=== PATIENT | male | born 1990 | race Caucasian/White ===

== ENCOUNTER 2017-11-14 05:49 | Emergency (ER) | payer BC, OTHER ==
[~2017-11-14] VITALS: Ht 180.3 cm; Wt 75.0 kg
[2017-11-14 05:51] VITALS: BP 148/73; PULSE 115; RESP 20; TEMP 98; O2SAT 98
[2017-11-14] MEDS ORDERED: SODIUM CHLOR 0.9% 1000 ML INJ 1,000 ML IV ONE (06:00)
--- NOTE | 2017-11-14 06:00 | PD ---
HPI Chief Complaint: OD/ Ingestion Time Seen by Provider: 05:58 Travel History International Travel<30 days: No Contact w/Intl Traveler<30days: No Traveled to known affect area: No History of Present Illness HPI Original 911 call was for unresponsive. Upon arrival the EMS found the patient face down not moving, not very responsive, decrease ventilatory rate around able to start an IV so they gave the patient 8 mg of Narcan nasally. After which the patient became responsive and verbal. Patient states that all he recalls is that he was in [place]. Law-enforcement was at the bedside and the patient was very hesitant to discuss what happened in any kind of detail. Patient denies any alleviating or aggravating factors. Patient denies any associated factors such as rash, nausea, vomiting, diarrhea, cough, shortness of breath, sore throat, runny nose. No known drug allergy Patient denies any significant past medical or surgical history PFSH Past Surgical History Other Surgery: Yes (middle finger) Social History Alcohol Use: Yes (rarely) Tobacco Use: Yes (1ppd) Substance Use: Yes (heroine) Allergies-Medications (Allergen,Severity, Reaction): Coded Allergies: No Known Allergies (Unverified , 11/14/17) Reported Meds & Prescriptions Reported Meds & Active Scripts Active Reported Buprenorphine (Buprenorphine HCl) 8 Mg Subl 8 Mg SL DAILY Review of Systems ROS Limitations: Intoxication General / Constitutional: No: Fever Eyes: No: Visual changes HENT: No: Headaches Cardiovascular: No: Chest Pain or Discomfort Respiratory: No: Shortness of Breath Gastrointestinal: No: Abdominal Pain Genitourinary: No: Dysuria Musculoskeletal: No: Pain Skin: No Rash Neurologic: Positive: Syncope Psychiatric: No: Depression Endocrine: No: Polydipsia Hematologic/Lymphatic: No: Easy Bruising Physical Exam Exam Limitations: Intoxication Narrative GENERAL: SKIN: Warm and dry. HEAD: Atraumatic. Normocephalic. EYES: Pupils equal and round. No scleral icterus. No injection or drainage. ENT: No nasal bleeding or discharge. Mucous membranes pink and moist. NECK: Trachea midline. No JVD. CARDIOVASCULAR: Regular rhythm, tachycardic rate RESPIRATORY: No accessory muscle use. Clear to auscultation. Breath sounds equal bilaterally. GASTROINTESTINAL: Abdomen soft, non-tender, nondistended. MUSCULOSKELETAL: Extremities without clubbing, cyanosis, or edema. No obvious deformities. NEUROLOGICAL: Awake and alert. No obvious cranial nerve deficits. Motor grossly within normal limits. Five out of 5 muscle strength in the arms and legs. Normal speech. PSYCHIATRIC: Appropriate mood and affect; insight and judgment normal. Data Data Last Documented VS Vital Signs Date Time Temp Pulse Resp B/P (MAP) Pulse Ox O2 Delivery O2 Flow Rate FiO2 11/14/17 05:51 98.0 115 20 148/73 (98) 98 Orders Orders Electrocardiogram (11/14/17 05:58) Complete Blood Count With Diff (11/14/17 05:58) Comprehensive Metabolic Panel (11/14/17 05:58) Creatine Kinase (Cpk) (11/14/17 05:58) Troponin I (11/14/17 05:58) Lipase (11/14/17 05:58) Urinalysis - C+S If Indicated (11/14/17 05:58) Thyroid Stimulating Hormone (11/14/17 05:58) Chest, Single Ap (11/14/17 05:58) Ct Brain W/O Iv Contrast(Rout) (11/14/17 05:58) Iv Access Insert/Monitor (11/14/17 05:58) Ecg Monitoring (11/14/17 05:58) Oximetry (11/14/17 05:58) Drug Screen, Random Urine (11/14/17 05:58) Alcohol (Ethanol) (11/14/17 05:58) Salicylates (Aspirin) (11/14/17 05:58) Tylenol (Acetaminophen) (11/14/17 05:58) Sodium Chlor 0.9% 1000 Ml Inj (Ns 1000 M (11/14/17 06:00) Ceftriaxone Inj (Rocephin Inj) (11/14/17 06:45) Labs Laboratory Tests Test 11/14/17 06:05 White Blood Count 20.4 TH/MM3 Red Blood Count 4.87 MIL/MM3 Hemoglobin 14.4 GM/DL Hematocrit 42.4 % Mean Corpuscular Volume 87.2 FL Mean Corpuscular Hemoglobin 29.7 PG Mean Corpuscular Hemoglobin Concent 34.0 % Red Cell Distribution Width 12.8 % Platelet Count 262 TH/MM3 Mean Platelet Volume 8.2 FL Neutrophils (%) (Auto) 90.6 % Lymphocytes (%) (Auto) 4.1 % Monocytes (%) (Auto) 5.2 % Eosinophils (%) (Auto) 0.0 % Basophils (%) (Auto) 0.1 % Neutrophils # (Auto) 18.5 TH/MM3 Lymphocytes # (Auto) 0.8 TH/MM3 Monocytes # (Auto) 1.0 TH/MM3 Eosinophils # (Auto) 0.0 TH/MM3 Basophils # (Auto) 0.0 TH/MM3 CBC Comment DIFF FINAL Differential Comment MDM Medical Decision Making Medical Screen Exam Complete: Yes Emergency Medical Condition: Yes Medical Record Reviewed: Yes Differential Diagnosis Rhabdo versus intoxication versus electrolyte imbalance versus intracranial hemorrhage versus aspiration pneumonia Narrative Course Patient is signed out to be incoming physician pending radiology studies and disposition Diagnosis Primary Impression: Altered mental status due to intoxication Raffaele Bauman MD November 14, 2017 06:00
[2017-11-14] MEDS ORDERED: BUPR8SUB SL (06:03)
[2017-11-14 06:33] LABS: AUTOMATED NEUTROPHIL # 18.5 TH/MM3 (1.8-7.7); BASOPHIL % 0.1 % (0.0-2.0); HEMATOCRIT 42.4 % (39.0-51.0); HEMOGLOBIN 14.4 GM/DL (13.0-17.0); LYMPH % 4.1 % (9.0-44.0); LYMPHOCYTE # 0.8 TH/MM3 (1.0-4.8); MEAN CELL VOLUME 87.2 FL (80.0-100.0); MEAN CORPUSCULAR HEMOGLOBIN 29.7 PG (27.0-34.0); MEAN PLATELET VOLUME 8.2 FL (7.0-11.0); MONO % 5.2 % (0.0-8.0); NEUT % 90.6 % (16.0-70.0); PLATELET COUNT 262 TH/MM3 (150-450); RED BLOOD COUNT 4.87 MIL/MM3 (4.50-5.90); RED CELL DISTRIBUTION WIDTH 12.8 % (11.6-17.2); WHITE BLOOD COUNT 20.4 TH/MM3 (4.0-11.0)
[2017-11-14 06:43] LABS: ALBUMIN 4.2 GM/DL (3.4-5.0); ALT (GPT) 26 U/L (12-78); AST (GOT) 27 U/L (15-37); BICARBONATE 25.9 MEQ/L (21.0-32.0); BLOOD UREA NITROGEN 16 MG/DL (7-18); CALCIUM 8.6 MG/DL (8.5-10.1); CHLORIDE 107 MEQ/L (98-107); CREATININE 1.49 MG/DL (0.60-1.30); GLOMERULAR FILTRATION RATE 57 ML/MIN (>89); GLUCOSE,RANDOM 151 MG/DL (74-106); SODIUM (NA) 142 MEQ/L (136-145)
[2017-11-14] MEDS ORDERED: cefTRIAXone INJ 1,000 MG in SODIUM CHLORIDE 0.9% INJ 100 ML IV ONE (06:45)
[2017-11-14 06:52] LABS: ALKALINE PHOSPHATASE 69 U/L (45-117); TOTAL BILIRUBIN ADULT 0.4 MG/DL (0.2-1.0); TOTAL PROTEIN 7.9 GM/DL (6.4-8.2); TROPONIN I LESS THAN 0.02 NG/ML (0.02-0.05)
[2017-11-14 06:55] LABS: ACETAMINOPHEN LESS THAN 2.0 MCG/ML (10.0-30.0)
[2017-11-14 07:09] VITALS: BP 126/69; PULSE 97; RESP 16; O2SAT 99
--- NOTE | 2017-11-14 07:12 | PD ---
Physical Exam Narrative Received sign out to follow up with CT brain and CXR. Pt was evaluated by previous provider, please see his note for further details. 27yo M was found unresponsive after unknown ingestion. Pt was awake after narcan from [facility]. Pt has not received any narcan in the ED. Pt is afebrile and initially mildly tachycardic at 115bpm. HR improved after NS IVF. Labs reviewed, leukocytosis at 20.4. May be reactive or infectious. Pt empirically cover with ceftriaxone by previous provider. CPK mildly elevated at 511. Creatinine mildly elevated at 1.49. Will hydrate. Troponin negative. TSH normal. LFTs normal. Alcohol negative. Acetaminophen and salicylate negative. Pt evaluated at bedside and is awake and alert. Admits to sniffing some medicine. States he is thirsty and requesting water. Denies any other complaints. No signs of trauma on him. CXR negative. CT brain negative. I feel that the leukocytosis is drug related and pt has been observed in the ED with no acute distress. Pt denies any suicidal or homicidal ideations. Do not think pt is a threat to himself or others so lifted Aranda Act. UA showed WBC 1. +Hyaline casts. Culture not indicated. Pt is dehydrated and has been given NS IVF and now is orally hydrating. Utox positive for cocaine. Return precautions given. Data Data Last Documented VS Vital Signs Date Time Temp Pulse Resp B/P (MAP) Pulse Ox O2 Delivery O2 Flow Rate FiO2 11/14/17 07:09 97 16 126/69 (88) 99 Room Air 11/14/17 05:51 98.0 Orders Orders Complete Blood Count With Diff (11/14/17 05:58) Comprehensive Metabolic Panel (11/14/17 05:58) Creatine Kinase (Cpk) (11/14/17 05:58) Troponin I (11/14/17 05:58) Lipase (11/14/17 05:58) Urinalysis - C+S If Indicated (11/14/17 05:58) Thyroid Stimulating Hormone (11/14/17 05:58) Chest, Single Ap (11/14/17 05:58) Ct Brain W/O Iv Contrast(Rout) (11/14/17 05:58) Iv Access Insert/Monitor (11/14/17 05:58) Ecg Monitoring (11/14/17 05:58) Oximetry (11/14/17 05:58) Drug Screen, Random Urine (11/14/17 05:58) Alcohol (Ethanol) (11/14/17 05:58) Salicylates (Aspirin) (11/14/17 05:58) Tylenol (Acetaminophen) (11/14/17 05:58) Sodium Chlor 0.9% 1000 Ml Inj (Ns 1000 M (11/14/17 06:00) Ceftriaxone Inj (Rocephin Inj) (11/14/17 06:45) CKMB (11/14/17 06:05) CKMB% (11/14/17 06:05) Ed Discharge Order (11/14/17 09:57) Labs Laboratory Tests Test 11/14/17 06:05 11/14/17 08:00 White Blood Count 20.4 TH/MM3 Red Blood Count 4.87 MIL/MM3 Hemoglobin 14.4 GM/DL Hematocrit 42.4 % Mean Corpuscular Volume 87.2 FL Mean Corpuscular Hemoglobin 29.7 PG Mean Corpuscular Hemoglobin Concent 34.0 % Red Cell Distribution Width 12.8 % Platelet Count 262 TH/MM3 Mean Platelet Volume 8.2 FL Neutrophils (%) (Auto) 90.6 % Lymphocytes (%) (Auto) 4.1 % Monocytes (%) (Auto) 5.2 % Eosinophils (%) (Auto) 0.0 % Basophils (%) (Auto) 0.1 % Neutrophils # (Auto) 18.5 TH/MM3 Lymphocytes # (Auto) 0.8 TH/MM3 Monocytes # (Auto) 1.0 TH/MM3 Eosinophils # (Auto) 0.0 TH/MM3 Basophils # (Auto) 0.0 TH/MM3 CBC Comment DIFF FINAL Differential Comment Blood Urea Nitrogen 16 MG/DL Creatinine 1.49 MG/DL Random Glucose 151 MG/DL Total Protein 7.9 GM/DL Albumin 4.2 GM/DL Calcium Level 8.6 MG/DL Alkaline Phosphatase 69 U/L Aspartate Amino Transf (AST/SGOT) 27 U/L Alanine Aminotransferase (ALT/SGPT) 26 U/L Total Bilirubin 0.4 MG/DL Sodium Level 142 MEQ/L Potassium Level 4.7 MEQ/L Chloride Level 107 MEQ/L Carbon Dioxide Level 25.9 MEQ/L Anion Gap 9 MEQ/L Estimat Glomerular Filtration Rate 57 ML/MIN Total Creatine Kinase 511 U/L Creatine Kinase MB 4.9 NG/ML Creatine Kinase MB % 1.0 % Troponin I LESS THAN 0.02 NG/ML Lipase 93 U/L Thyroid Stimulating Hormone 3rd Gen 0.798 uIU/ML Salicylates Level LESS THAN 1.7 MG/DL Acetaminophen Level LESS THAN 2.0 MCG/ML Ethyl Alcohol Level LESS THAN 3 MG/DL Urine Color YELLOW Urine Turbidity CLEAR Urine pH 6.0 Urine Specific [place] 1.021 Urine Protein TRACE mg/dL Urine Glucose (UA) 70 mg/dL Urine Ketones NEG mg/dL Urine Occult Blood NEG Urine Nitrite NEG Urine Bilirubin NEG Urine Urobilinogen LESS THAN 2.0 MG/DL Urine Leukocyte Esterase NEG Urine RBC LESS THAN 1 /hpf Urine WBC 2 /hpf Urine Squamous Epithelial Cells 1 /hpf Urine Bacteria OCC /hpf Urine Hyaline Casts 35 /lpf Urine Mucus FEW /lpf Microscopic Urinalysis Comment CULT NOT INDICATED Urine Opiates Screen NEG Urine Barbiturates Screen NEG Urine Amphetamines Screen NEG Urine Benzodiazepines Screen NEG Urine Cocaine Screen POS Urine Cannabinoids Screen NEG MDM Supervised Visit with [facility]: No Diagnosis Primary Impression: Altered mental status due to intoxication Patient Instructions: General Instructions Departure Forms: Tests/Procedures Additional Instruction: Please follow up with your primary care physician in 2-3 days. Return to the ED if symptoms worsen. Med/Other Pt SpecificInfo: Prescription(s) given Scripts Naloxone Nasal Dexter (Narcan Nasal Dexter) 4 Mg/Act Dexter 4 MG NASAL ONCE Y for OPIOID OVERDOSE, #1 SPRAY 0 Refills Contents of 1 nasal spray as a single dose; may repeat every 2 to 3 minutes in alternating nostrils until medical assistance becomes available. Prov: Jill Cohn DO 11/14/17 Disposition: 01 DISCHARGE HOME Condition: Stable Jill Cohn DO November 14, 2017 07:12
--- NOTE | 2017-11-14 07:55 | RADRPT ---
EXAM DATE: 11/14/2017 7:51 AM EDT AGE/SEX: 27 years / Male INDICATIONS: Shortness of breath. CLINICAL DATA: This is the patient's initial encounter. Patient reports that signs and symptoms have been present for 1 day and indicates a pain score of 0/10. MEDICAL/SURGICAL HISTORY: None. None. COMPARISON: No prior [facility] [place] exams available for comparison. FINDINGS: A single AP view of the chest demonstrates the lungs to be symmetrically aerated without evidence of mass, infiltrate or effusion. The cardiomediastinal contours are unremarkable. Osseous structures a re intact. CONCLUSION: No acute intrathoracic disease. Electronically signed by: Miguel A Negrete MD 11/14/2017 7:54 AM EDT
--- NOTE | 2017-11-14 08:13 | RADRPT ---
EXAM DATE: 11/14/2017 8:09 AM EDT AGE/SEX: 27 years / Male INDICATIONS: Found unresponsive. Possible drug overdose. Altered mental status, dizziness. CLINICAL DATA: This is the patient's initial encounter. Patient reports that signs and symptoms have been present for 1 day and indicates a pain score of 2/10. MEDICAL/SURGICAL HISTORY: . Intravenous drug abuse. None. RADIATION DOSE: 36.32 CTDI (mGy) COMPARISON: No prior [facility] exams available for comparison. TECHNIQUE: CT of the head without contrast. Using automated exposure control and adjustment of the mA and/or kV according to patient size, radiation dose was kept as low as reasonably achievable to ob tain optimal diagnostic quality images. FINDINGS: Cerebrum: The ventricles are normal for age. No evidence of midline shift, mass lesion, hemorrhage or acute infarction. No extraaxial fluid collections are seen. Posterior Fossa: The cerebellum and brainstem are intact. The 4th ventricle is midline. The cerebe llopontine angle is unremarkable. Extracranial: The visualized portion of the orbits is intact. Skull: The calvaria is intact. No evidence of skull fracture. CONCLUSION: 1. Negative CT Head non contrast. Electronically signed by: Miguel A Negrete MD 11/14/2017 8:12 AM EDT
[2017-11-14 09:31] LABS: BACTERIA, URINE OCC /hpf; BILIRUBIN, URINE NEG (NEG); BLOOD, URINE NEG (NEG); GLUCOSE,URINE 70 mg/dL (NEG); HYALINE CAST, URINE 35 /lpf (RARE); KETONE, URINE NEG (NEG); MUCUS URINE FEW /lpf (OCC); NITRITE,URINE NEG (NEG); SQUAMOUS EPITHELIAL CELL URINE 1 /hpf (0-5); URINE COLOR YELLOW (YELLW/STRAW); URINE LEUKOCYTE ESTERASE NEG (NEG)
[2017-11-14] MEDS ORDERED: NALO1SPR NASAL (10:02)
== END 2017-11-14 14:26 | disposition home or self-care (01) ==
LOC: NEPC 05:49 → NEDAMB 14:26
DX: R41.82 Altered mental status, unspecified (principal); F17.200 Nicotine dependence, unspecified, uncomplicated; R06.02 Shortness of breath; T50.905A Adverse effect of unspecified drugs, medicaments and biological substances, initial encounter
CPT/HCPCS: 70450; 71045; 80053; 80307; 81001; 82550; 82552; 83690; 84443; 84484; 85025; 96365; 99284; J0696; J7030